=== PATIENT | female | born 1990 | race Caucasian/White ===

== ENCOUNTER 2019-12-07 10:16 | Outpatient (CLI) | payer OTHER, SELFPAY ==
[2019-12-07 10:43] VITALS: BP 144/88; PULSE 107
[2019-12-07 10:45] VITALS: BP 126/91; PULSE 109
[2019-12-07 10:49] LABS: Basophils Absolute Auto 0.1 K/mm3 (0.0-0.1); Basophils Percent Auto 0.4 % (0.2-1.2); Eosinophils Absolute Auto 0.1 K/mm3 (0-0.3); Eosinophils Percent Auto 1.2 % (0-4.4); Hematocrit 35.2 % (37.0-47.0); Immature Granulocyte Percent A 1.7 % (0-0.5); Lymphocytes Percent Auto 15.1 % (18.3-44.2); Mean Corpuscular HGB Conc 34.1 g/dl (32-36); Mean Corpuscular Hemoglobin 30.4 pg (26-34); Mean Corpuscular Volume 89.1 fl (80-100); Monocytes Absolute Auto 0.9 K/mm3 (0.1-0.6); Monocytes Percent Auto 7.4 % (2.6-8.5); Neutrophils Absolute Auto 8.9 K/mm3 (1.3-6.7); Neutrophils Percent Auto 74.2 % (45.5-73.1); Platelet Count Result 201 k/mm3 (150-375); Red Blood Count 3.95 M/mm3 (4.2-5.4); Red Cell Distribution Width 14.7 % (11.5-14.5)
[2019-12-07 11:00] VITALS: BP 128/80; PULSE 114
[2019-12-07 11:02] LABS: Alanine Aminotransferase 6 U/L (4-35); Albumin Level 3.4 g/dL (3.5-5.1); Alkaline Phosphatase 166 U/L (38-126); Aspartate Amino Transferase 19 U/L (14-36); Bilirubin,Total 0.1 mg/dL (0.2-1.3); Blood Urea Nitrogen 4 mg/dL (7-17); Carbon Dioxide 21 mmol/L (22-30); Chloride 106 mmol/L (98-107); Estimated Glomerular Filt Rate > 60; Glucose 71 mg/dL (65-105); Potassium 3.8 mmol/L (3.4-5.0); Sodium 132 mmol/L (137-145); Uric Acid 4.5 mg/dL (2.5-7.5)
[2019-12-07 11:03] LABS: Creatinine Urine 21.1 mg/dL; Total Protein Urine Random 13 mg/dL
[2019-12-07 11:15] VITALS: BP 121/86; PULSE 100
[2019-12-07 11:20] VITALS: PULSE 103
--- NOTE | 2019-12-07 12:23 | PC.NURSE ---
Addendum entered by Na Osorio RN 12/07/19 12:25: Actual time called was 1115. Original Note: Called Vipul Araujo CNM with labs, BPs and tracing. December D/C home with 24hr urine and follow up this week in office.
== END 2019-12-07 11:25 | disposition home or self-care (01) ==
LOC: ANHOBOP 10:20 → ANHOBPP 10:21
PROVIDERS: Advanced Practice Midwife; PCP Internal Medicine; Visit Provider Obstetrics & Gynecology
DX: O13.9 Gestational [pregnancy-induced] hypertension without significant proteinuria, unspecified trimester (principal)
CPT/HCPCS: 36415; 59025; 80053; 82570; 84156; 84550; 85025; 99199

== ENCOUNTER 2019-12-08 12:45 | Outpatient (CLI) | payer OTHER, SELFPAY ==
[2019-12-08 14:54] LABS: Collection Time Urine 24 HOURS
[2019-12-08 15:02] LABS: Patient Weight 300 Lbs; Specific Gravity Ur 1.011; Total Volume 24 Hour Urine 3100 ml
[2019-12-08 15:12] LABS: Creatinine Clearance Urine 157.7 ml/min (75-125); Creatinine Urine 62.8 mg/dL; Total Protein Urine 24 Hr 434 MG/DAY (28-141); Total Protein Urine Random 14 mg/dL
== END 2019-12-08 12:46 | disposition home or self-care (01) ==
LOC: ANHOBOP 12:55
PROVIDERS: PCP Internal Medicine; Visit Provider Advanced Practice Midwife
DX: O13.9 Gestational [pregnancy-induced] hypertension without significant proteinuria, unspecified trimester (principal)
CPT/HCPCS: 81050; 82575; 84156

== ENCOUNTER 2019-12-09 16:43 | Inpatient (IN) | payer OTHER, SELFPAY ==
[2019-12-09] VITALS (11 sets, daily range): BP systolic 126–140; BP diastolic 66–82; PULSE 95–116; TEMP 36.9; BMI 41.5
--- NOTE | 2019-12-09 16:43 | LDADM ---
This patient, Cristine Wyman, was admitted to Labor/Delivery/Recovery 108 on 12/09/19 at 16:43. Plans for labor, pain management and were discussed with patient. Patient/family oriented to hospital policies and general routines including ID bracelet, bed and alarms, visiting hours, pain management, procedures, bathroom and other care routines, personal items, smoking policy, room service/diet and guest tray routines, security routines, and visiting hours. Patient/Family are encouraged to report perceived risks to care and to ask questions if they do not understand what they are told or what they should do. See OBIX for further documentation.
[2019-12-09 17:48] LABS: Basophils Percent Auto 0.2 % (0.2-1.2); Eosinophils Absolute Auto 0.1 K/mm3 (0-0.3); Eosinophils Percent Auto 0.7 % (0-4.4); Hematocrit 36.4 % (37.0-47.0); Hemoglobin 12.3 g/dL (12.0-15.0); Immature Granulocyte Absolute 0.12 K/mm3 (0.00-0.031); Immature Granulocyte Percent A 0.9 % (0-0.5); Lymphocytes Absolute Auto 1.69 K/mm3 (0.9-3.2); Lymphocytes Percent Auto 12.2 % (18.3-44.2); Mean Corpuscular HGB Conc 33.8 g/dl (32-36); Mean Corpuscular Hemoglobin 30.1 pg (26-34); Mean Corpuscular Volume 89.2 fl (80-100); Mean Platelet Volume 12.3 fl (7.4-10.4); Monocytes Percent Auto 6.9 % (2.6-8.5); Neutrophils Percent Auto 79.1 % (45.5-73.1); Platelet Count Result 252 k/mm3 (150-375); Red Blood Count 4.08 M/mm3 (4.2-5.4); Red Cell Distribution Width 14.6 % (11.5-14.5); White Blood Count 13.9 K/mm3 (4.5-10.0)
[2019-12-09 19:07] LABS: Alanine Aminotransferase 6 U/L (4-35); Albumin Level 3.6 g/dL (3.5-5.1); Alkaline Phosphatase 185 U/L (38-126); Aspartate Amino Transferase 20 U/L (14-36); Bilirubin,Total 0.2 mg/dL (0.2-1.3); Blood Urea Nitrogen 5 mg/dL (7-17); Calcium 8.7 mg/dL (8.4-10.2); Carbon Dioxide 21 mmol/L (22-30); Chloride 106 mmol/L (98-107); Estimated Glomerular Filt Rate > 60; Glucose 77 mg/dL (65-105); Potassium 3.7 mmol/L (3.4-5.0); Sodium 136 mmol/L (137-145); Uric Acid 5.1 mg/dL (2.5-7.5)
--- NOTE | 2019-12-09 21:37 | WPDANESEPP ---
Anes - Eval Pre Procedure Procedure: labor epidural Date/Time: 12/09/19 21:37 Surgeon: dea Pre Op Diagnosis: Induction of Labor Patient Data Age: 29 Gender: F Height: 1.8 m Weight: 135 kg Last Vital Signs Temp 36.9 C 12/09/19 20:20 Pulse 106 H 12/09/19 21:29 BP 132/80 12/09/19 21:29 Allergies Allergy/AdvReac Type Severity Reaction Status Date / Time No Known Allergies Allergy Verified 11/28/19 12:33 Home Medications Medication Instructions Recorded Confirmed Type PNV cmb#95-ferrous fumarate-FA 1 tablet PO DAILY 11/28/19 11/28/19 History [] aspirin [Aspirin Low Dose] 81 mg PO DAILY 11/28/19 11/28/19 History Laboratory Tests 12/09/19 12/09/19 12/09/19 17:37 17:37 17:37 WBC 13.9 K/mm3 H K/mm3 (4.5-10.0) RBC 4.08 M/mm3 L M/mm3 (4.2-5.4) Hgb 12.3 g/dL g/dL (12.0-15.0) Hct 36.4 % L % (37.0-47.0) MCV 89.2 fl fl (80-100) MCH 30.1 pg pg (26-34) MCHC 33.8 g/dl g/dl (32-36) RDW 14.6 % H % (11.5-14.5) Plt Count 252 k/mm3 k/mm3 (150-375) MPV 12.3 fl H fl (7.4-10.4) Immature Gran % (Auto) 0.9 % H % (0-0.5) Neut % (Auto) 79.1 % H % (45.5-73.1) Lymph % (Auto) 12.2 % L % (18.3-44.2) Band[place] % (Auto) 6.9 % % (2.6-8.5) Eos % (Auto) 0.7 % % (0-4.4) Baso % (Auto) 0.2 % % (0.2-1.2) Lymph # (Auto) 1.69 K/mm3 K/mm3 (0.9-3.2) [place] # (Auto) 1.0 K/mm3 H K/mm3 (0.1-0.6) Eos # (Auto) 0.1 K/mm3 K/mm3 (0-0.3) Baso # (Auto) 0.0 K/mm3 K/mm3 (0.0-0.1) Abs Immat Gran (auto) 0.12 K/mm3 H K/mm3 (0.00-0.031) Absolute Neuts (auto) 11.0 K/mm3 H K/mm3 (1.3-6.7) Absolute Nucleated RBC 0.0 K/mm3 K/mm3 (0.0-0.012) Nucleated RBC % 0.0 % % (0.0-0.2) Sodium Potassium Chloride Carbon Dioxide BUN Creatinine Estim Creat Clear Calc Estimated GFR Glucose Uric Acid Calcium Total Bilirubin AST ALT Alkaline Phosphatase Total Protein Albumin RPR Pending Blood Type O Positive Antibody Screen Negative 12/09/19 18:50 WBC RBC Hgb Hct MCV MCH MCHC RDW Plt Count MPV Immature Gran % (Auto) Neut % (Auto) Lymph % (Auto) [place] % (Auto) Eos % (Auto) Baso % (Auto) Lymph # (Auto) [place] # (Auto) Eos # (Auto) Baso # (Auto) Abs Immat Gran (auto) Absolute Neuts (auto) Absolute Nucleated RBC Nucleated RBC % Sodium 136 mmol/L L mmol/L (137-145) Potassium 3.7 mmol/L mmol/L (3.4-5.0) Chloride 106 mmol/L mmol/L (98-107) Carbon Dioxide 21 mmol/L L mmol/L (22-30) BUN 5 mg/dL L mg/dL (7-17) Creatinine 0.60 mg/dL L mg/dL (0.7-1.0) Estim Creat Clear Calc Not Reportable Estimated GFR > 60 (59 - ) Glucose 77 mg/dL mg/dL (65-105) Uric Acid 5.1 mg/dL mg/dL (2.5-7.5) Calcium 8.7 mg/dL mg/dL (8.4-10.2) Total Bilirubin 0.2 mg/dL mg/dL (0.2-1.3) AST 20 U/L U/L (14-36) ALT 6 U/L U/L (4-35) Alkaline Phosphatase 185 U/L H U/L (38-126) Total Protein 7.0 g/dL g/dL (6.3-8.2) Albumin 3.6 g/dL g/dL (3.5-5.1) RPR Blood Type Antibody Screen Patient hx anesthesia problems: none Family hx anesthesia problems: none [facility] Family History Family History (Updated 11/28/19 @ 12:36 by Earle Atkins RN) Grandparent Hypertension Asthma Bladder cancer Social History Social History Smoking status: Never smoker Substance use: never Spiritual care concerns: No
[2019-12-10] VITALS (127 sets, daily range): BP systolic 55–174; BP diastolic 28–131; PULSE 87–127; RESP 18; TEMP 37.2–37.7; O2SAT 86–100
--- NOTE | 2019-12-10 04:28 | WPDOBADMIT ---
Obstetrics - Admit Note Admission Note: record reviewed. No pertinent additions to the history and/or any subsequent changes in the physical findings that are not consistent with the expected course of the were found. MIL mild preeclampsia plan opitocin, anticipate vaginal delivery Additions to the history and/or subsequent changes in the physical findings follow. None.
[2019-12-10] MEDS: LACTATED RINGERS 1,000 ML 125 ML IV CONT ×3 (06:30→12:43)
[2019-12-10 07:08] LABS: Rapid Plasma Reagin Non-Reactive (NonReactive)
--- NOTE | 2019-12-10 07:54 | WPDOBADMIT ---
Obstetrics - Admit Note Admission Note: 29y/o @ 37w6 days here for inducton of labor due to mild pre-eclampsia. Pt has had elevated blood pressures and now a elevated 24 hour urine. Pt denies h/a, v/d, or e/p. Contractions irregular FHR category 1 Cervix 2 internal/ 3 external/50/-3 and well applied to cervix AROM moderate amount of clear odorless fluid IUPC placed EFW 8lbs Epidural as desired Anticipate . record reviewed. No pertinent additions to the history and/or any subsequent changes in the physical findings that are not consistent with the expected course of the were found. Additions to the history and/or subsequent changes in the physical findings follow. None.
[2019-12-10] MEDS: PHENYLEPHRINE 1,000 MCG/10 ML SYRINGE 100 MCG IV PUSH ×4 (10:19→10:44)
--- NOTE | 2019-12-10 15:47 | PM.OBPRVD ---
OB - Delivery Note Procedure Delivery date: 12/10/19 events: Induced HTN Intrapartal events: None and Mild Preeclampsia Induction method: per pitocin protocol Delivery monitor: external FHT, external uterine and internal uterine Route of delivery: Episiotomy description: None Laceration description: None Estimated blood loss (mL): 68 Anesthesia type: Epidural [place] Baby Date of : 12/10/19 Time of : 15:27 Weeks of gestation at delivery: 37 gender: Female Weight (pounds): 8 Weight (ounces): 2 presentation: vertex Placenta delivery description: Spontaneous cord vessel description: Nuchal Cord, Loose and Reduced score one minute: 8 score five minutes: 9
[2019-12-10] MEDS: OXYTOCIN 30 UNITS/NS 500 ML 30 UNITS/500 ML BAG 125 UNITS IV CONT (16:16)
--- NOTE | 2019-12-10 20:03 | PC.NURSE ---
Patient transferred to post room # 288 via . Support person present. Oriented to unit, room, information board, rooming in, admission packet and security measures. Patient verbalizes understanding.
[2019-12-11 06:01] LABS: Hematocrit 29.5 % (37.0-47.0); Hemoglobin 9.7 g/dL (12.0-15.0)
--- NOTE | 2019-12-11 07:31 | PM.OBPNVD ---
OB - PN: Subj Subjective Date/time seen: 12/11/19 07:31 Patient comments: no complaints, pain well controlled, incisional pain, tolerating diet and flatus present OB - PN: Obj Data Labs CBC & Chem 7: 12/11/19 04:32 12/09/19 18:50 Labs: Laboratory Results - last 24 hr 12/11/19 04:32 Hgb 9.7 L Hct 29.5 L OB - PN A/P Plan day: 1 Plan: routine care Comments: No problems, routine care Time Spent With Patient Time: Total time spent is greater than 50% in coordination of care (as documented) at patient's floor/unit and/or counseling patient: Exam Const: General: comfortable, no acute distress and alert Resp: Effort & Inspection: normal respiratory effort Auscultation: no crackles, no rales and no rhonchi Cardio: Rate: regular rate Heart sounds: no click, no murmurs and no rubs GI: Inspection: non-distended GI Palp: No Tenderness to palpation present (GI) Auscultation: normal bowel sounds Other: Incision - CDI Extrem: General: normal to inspection, no pedal edema and no calf tenderness
[2019-12-11 08:30] VITALS: BP 140/93; PULSE 97; RESP 18; TEMP 37.3; O2SAT 99
[2019-12-11] MEDS: MULTIVIT/MIN/PREN/FOL AC/IRON TABLET 1 TAB PO (08:39)
[2019-12-11] MEDS: POLYSACCHARIDE IRON COMPLEX 150 MG CAPSULE PO ×2 (08:43→16:29)
[2019-12-11] MEDS: DOCUSATE SODIUM 100 MG CAPSULE PO ×2 (08:43→16:29)
--- NOTE | 2019-12-11 11:29 | WPDANLDPN2 ---
Anes-Prog Note L&D Date/Time: 12/11/19 11:29 Comfortable throughout: delivery Neuraxial method: epidural Epidural/Spinal procedure site: clean & non-tender Neuro status: Neuro function grossly intact. Cardiovascular status: normal Respiratory status: normal Airway patency: baseline Mental status: baseline Post-Op hydration status: normal Vital Signs: Last Vital Signs Temp 37.3 C 12/11/19 08:30 Pulse 97 12/11/19 08:30 Resp 18 12/11/19 08:30 BP 140/93 H 12/11/19 08:30 Pulse Ox 99 12/11/19 08:30 Post-procedural complaints: none Patient feedback: Patient satisfied with anesthetic care.
[2019-12-11 17:20] VITALS: BP 147/95; PULSE 94; O2SAT 99
[2019-12-11] MEDS: IBUPROFEN 600 MG TABLET PO (17:44)
[2019-12-11 20:00] VITALS: BP 148/96; PULSE 96; RESP 20; TEMP 37.2; O2SAT 100
[2019-12-11 20:30] VITALS: BP 117/68
[2019-12-12 08:15] VITALS: BP 130/73; PULSE 92; RESP 18; TEMP 36.9
[2019-12-12] MEDS: DOCUSATE SODIUM 100 MG CAPSULE PO ×2 (09:20→17:59)
[2019-12-12] MEDS: POLYSACCHARIDE IRON COMPLEX 150 MG CAPSULE PO ×2 (09:20→17:58)
[2019-12-12] MEDS: MULTIVIT/MIN/PREN/FOL AC/IRON TABLET 1 TAB PO (09:25)
--- NOTE | 2019-12-12 11:00 | PM.OBPNVD ---
OB - PN: Subj Subjective Date/time seen: 12/12/19 11:00 Patient comments: no complaints, pain well controlled, incisional pain, tolerating diet and flatus present OB - PN: Obj Data Labs CBC & Chem 7: 12/11/19 04:32 12/09/19 18:50 OB - PN A/P Plan day: 2 Plan: routine care Comments: POD#2 LTCS - comtinue observation for HTN, Time Spent With Patient Time: Total time spent is greater than 50% in coordination of care (as documented) at patient's floor/unit and/or counseling patient: Exam Const: General: comfortable, no acute distress and alert Resp: Effort & Inspection: normal respiratory effort Auscultation: no crackles, no rales and no rhonchi Cardio: Rate: regular rate Heart sounds: no click, no murmurs and no rubs GI: Inspection: non-distended GI Palp: No Tenderness to palpation present (GI) Auscultation: normal bowel sounds Other: Incision - CDI Extrem: General: normal to inspection, no pedal edema and no calf tenderness
[2019-12-12 20:20] VITALS: BP 129/73; PULSE 88; RESP 18; TEMP 37.3; O2SAT 100
[2019-12-13 08:30] VITALS: BP 122/80; PULSE 89; RESP 16; TEMP 36.9; O2SAT 98
[2019-12-13] MEDS: DOCUSATE SODIUM 100 MG CAPSULE PO (09:44)
[2019-12-13] MEDS: MULTIVIT/MIN/PREN/FOL AC/IRON TABLET 1 TAB PO (09:44)
[2019-12-13] MEDS: POLYSACCHARIDE IRON COMPLEX 150 MG CAPSULE PO (09:44)
--- NOTE | 2019-12-13 11:34 | PM.OBPNVD ---
OB - PN: Subj Subjective Date/time seen: 12/13/19 11:34 Patient comments: no complaints, pain well controlled, incisional pain, tolerating diet and flatus present OB - PN: Obj Data Labs CBC & Chem 7: 12/11/19 04:32 12/09/19 18:50 OB - PN A/P Plan day: 3 Plan: routine care Comments: POD#3 LTCS - no problems, ready to d/c, BP's are stable Time Spent With Patient Time: Total time spent is greater than 50% in coordination of care (as documented) at patient's floor/unit and/or counseling patient: Exam Const: General: comfortable, no acute distress and alert Resp: Effort & Inspection: normal respiratory effort Auscultation: no crackles, no rales and no rhonchi Cardio: Rate: regular rate Heart sounds: no click, no murmurs and no rubs GI: Inspection: non-distended GI Palp: No Tenderness to palpation present (GI) Auscultation: normal bowel sounds Other: Incision - CDI Extrem: General: normal to inspection, no pedal edema and no calf tenderness
--- NOTE | 2019-12-13 11:35 | PM.OBDSVD ---
DS: Diagnosis Discharge Diagnosis (1) Term delivered: Code(s): O80 - Encounter for full-term uncomplicated delivery Status: Acute OB - DS: Summary OB Procedures : PIH Mgmt OB Procedures Intrapartum: Spontaneous Vag Delivery OB Procedures: : None Peripartum Data Infant Delivery Method: Natural Vaginal complications: none Status at Discharge Functional status at discharge: independent ambulation Time Spent with Patient Time attestation: Total time spent providing and/or coordinating discharge services: DS: Data Data Completed and Pending Pending studies at discharge: Pending at discharge 12/10/19 15:40 Surgical [PTH] Routine Discharge Plan Discharge Discharging Clinician: Daiana Guerra Patient Disposition: Home, Self-Care Activity: pelvic rest Diet: regular Patient Instructions: Antibiotic Form Stand Alone Forms: General Discharge Information Follow-up/Referrals: Daiana Guerra MD [Physician] - Discharge Medications: Continued PNV cmb#95-ferrous fumarate-FA [] 28 mg iron- 800 mcg Tablet 1 tablet PO DAILY RF: 0 Discontinued aspirin [Aspirin Low Dose] 81 mg Tablet,Delayed Release (Dr/Ec) 81 mg PO DAILY RF: 0 Date of admission: 12/09/19 16:43 Primary Care Provider: BrysonSantino Admitting Provider: Daiana Guerra Attending physician on admission: Daiana Guerra
[2019-12-15 09:10] VITALS: BP 135/82; PULSE 98; RESP 20; TEMP 36.6; O2SAT 99
== END 2019-12-13 12:35 | disposition home or self-care (01) | DRG 807 ==
LOC: ANHLDR 16:49 → ANHOB2 12-10 19:48
PROVIDERS: Advanced Practice Midwife; Admitting Provider Obstetrics & Gynecology; PCP Internal Medicine; Visit Provider Obstetrics & Gynecology
DX: O14.04 Mild to moderate pre-eclampsia, complicating childbirth (principal); Z37.0 Single live birth; Z3A.37 37 weeks gestation of pregnancy; O69.2XX0 Labor and delivery complicated by other cord entanglement, with compression, not applicable or unspecified
CPT/HCPCS: 36415; 80053; 84550; 85014; 85018; 85025; 86592; 86850; 86900; 86901; 88307; A9270; J2370; J2590; J2795; J7120

== ENCOUNTER → 2021-10-07 00:03 | Outpatient (CLI) | payer OTHER, SELFPAY ==
[2021-10-07 12:27] LABS: SARS-CoV-2 RNA PCR Negative
== END ==
PROVIDERS: PCP Internal Medicine; Visit Provider Obstetrics & Gynecology
DX: Z01.812 Encounter for preprocedural laboratory examination (principal); Z20.822 Contact with and (suspected) exposure to COVID-19
CPT/HCPCS: C9803; U0003; U0005

== ENCOUNTER 2021-10-11 00:06 | Day surgery (SDC) | payer OTHER, SELFPAY ==
[2021-10-04 13:58] VITALS: BMI 39.2
--- NOTE | 2021-10-04 14:06 | PC.NURSE ---
Report to the Outpatient Waiting Room, entrance under the green pavilion located off [facility], at time 0600 on date 10/11/21. OR Time: 0730. - You and your visitor will be asked a series of questions to screen for COVID 19 for your protection. - A mask is required within the hospital. One visitor will be allowed to accompany the patient into the hospital. Patients visitor will be instructed to remain with patient at all times or leave the building. We will allow the visitor to come back to the postoperative area when patient is ready. Preoperative COVID Testing Requirements: No COVID Test needed if: (proof is required; if not received patient will have Rapid Test prior to entry) - Patient has received COVID Vaccine at least 14 days prior to procedure date or - Patient has positive COVID test result within last 90 days of surgery date. COVID Test needed if above criteria is not met Patients may have clear liquids (water, carbonated beverages, clear teas, apple juice) until 3 hours prior to surgery with a maximum of 20 ounces. - No food from midnight until time of surgery Take the following medications with a SIP of water the morning of surgery: CONTROL PILL, INHALER (IF NEEDED) Medications to discontinue per physician: N/A Date to take last dose: N/A Please no make-up, nail bulgarian, hairspray, perfume, deodorant, or body powder the day of surgery. No jewelry (including any body piercings) or valuables the day of surgery, leave them at home. Please take a shower or bath the night before, or the morning of, surgery with an antibacterial soap. Wear comfortable, loose fitting clothing. - Jewelry must be removed prior to entering the operating room. Rings and piercings that are not removed may be cut off. - The hospital will not accept responsibility for valuables. - Please leave all valuables, including medications, at home the day of surgery. If you are going home after surgery, a licensed route sales delivery drivers supervisor must drive you home. - NO public transportation without another adult. - We recommend that an adult stay with you for 24 hours following discharge. - We also recommend that you do not drive, make important decision, drink alcoholic beverages, or take any drugs that were not prescribed by your health care provider for at least 24 hours after your discharge time. Follow any additional instructions given to you from your surgeon. Telephone instructions given to MAICO SANCHEZ and asked if any additional questions and then verbalized understanding. Patient advised to call surgeon office or pre surgery nurse liaison [phone] if any additional questions.
--- NOTE | 2021-10-10 13:25 | P.PNAN_ITS ---
Anes - Initial Pre Proc Eval Procedure: Operation Date: 10/11/21 07:30 Proposed Procedures p Laparoscopic Bilateral Salpingectomy - Daiana Guerra MD Date/Time: 10/10/21 13:25 Surgeon: Daiana Guerra MD Pre Op Diagnosis: Menorrhagia Vol Sterilization Patient Data Age: 30 Gender: F Height: 1.78 m Weight: 123.83 kg Allergies Allergy/AdvReac Type Severity Reaction Status Date / Time No Known Allergies Allergy Verified 10/11/21 06:24 Home Medications Medication Instructions Recorded Confirmed Type albuterol sulfate 1 inh INHALATION Q6H PRN 10/04/21 10/11/21 History drospirenone-ethinyl estradiol 1 tablet PO DAILY 10/04/21 10/11/21 History [LESLI (28)] ergocalciferol (vitamin D2) 1,250 mcg PO WEEKLY 10/04/21 10/11/21 History Patient hx anesthesia problems: none Family hx anesthesia problems: none Results Review: All pre-operative results and documents have been reviewed as part of the pre-operative evaluation. [facility] Past Medical History Medical History (Updated 10/10/21 @ 13:27 by Sony Shepard MD) Abnormal uterine bleeding Anxiety Asthma HTN (hypertension) Hyperlipidemia Obesity Family History Family History (Updated 11/28/19 @ 12:36 by Earle Atkins RN) Grandparent Hypertension Asthma Bladder cancer Social History Social History Smoking status: Never smoker Alcohol intake: current Alcohol use details: EVERY COUPLE MONTHS Substance use: never Substance use type: does not use Living arrangements: with family Spiritual care concerns: No Anes - Eval Final PreProcedure Day of Procedure 10/10/21 13:25 Patient weight: obese Heart: regular rate and rhythm Lungs: clear to auscultation and normal air movement Airway: Mallampati scale class II Neurological: alert and oriented Last oral intake: >/= 8 hours ASA classification: III Emergent: no Anesthetic plan: proceed Anesthesia type and monitoring: general LMA Results Review: All pre-operative results and documents have been reviewed as part of the pre-operative evaluation. Informed Consent: The patient's anesthetic plan and its attendant risks and benefits were discussed with the patient/family/POA. Questions were solicited and answers provided to the satisfaction of the patient/family/POA.
[2021-10-11] VITALS (7 sets, daily range): BP systolic 114–147; BP diastolic 56–88; PULSE 67–87; RESP 16–20; TEMP 36.3–36.9; O2SAT 97–100
[2021-10-11] MEDS: ACETAMINOPHEN 500 MG TABLET 1000 MG PO (06:27)
[2021-10-11] MEDS: LACTATED RINGERS 1,000 ML 30 ML IV CONT ×2 (06:41→08:22)
[2021-10-11] MEDS: KETOROLAC 15 MG/ML VIAL (*BKC) IV PUSH (06:42)
--- NOTE | 2021-10-11 07:15 | WPDHPUPDATE1 ---
History and Physical Update Update Date/Time: 10/11/21 07:15 History and Physical has been reviewed, including an updated exam of the patient. There are NO changes in the patient's condition. Risks, benefits, and alternatives have been discussed and questions answered. Patient agrees to proceed with procedure.
--- NOTE | 2021-10-11 08:09 | W.PM.PROC2 ---
Procedure Note - Detailed Date of Procedure 10/11/21 Pre-op Diagnosis Menorrhagia Vol Sterilization Post-op Diagnosis Same Procedure Performed Laparoscopic bilateral salpingectomy Surgeon Daiana Guerra MD Anesthesia General Indications Unwanted fertility Findings Normal pelvic anatomy Description of Procedure The patient was taken the operating room. She was prepped and draped in the dorsal lithotomy position after induction of general anesthesia. A 5 mm skin incision was made in the left upper quadrant of the abdominal skin. A 5 mm trocar was inserted the intra-abdominal cavity under direct visualization of the scope. Pneumoperitoneum was achieved. A 5 mm trocar was inserted in the left lower quadrant identical fashion. A 5 mm infraumbilical trocar was inserted in identical fashion as well. The bilateral fallopian tubes were removed. This was done by using a LigaSure cautery. The mesosalpinx adjacent to the tube was cauterized transected with LigaSure. This was initiated in the area the ovary and in a stepwise fashion moved medially to the area of the cornu of the uterus. Once there the fallopian tube was cauterized and transected. This was done in identical fashion on each side. The fallopian tubes were taken out through the left lower quadrant trocar site. The pneumoperitoneum was reduced. The trocars removed. The skin was closed with subcuticular 4 Monocryl and covered with Dermabond. She was taken to cover stable condition. Sponge lap and needle counts were correct x2. Estimated Blood Loss 5 Drains No Packing No Pathology Yes Complications No immediate complications Condition Stable Disposition PACU
[2021-10-11] MEDS: ONDANSETRON INJ 4 MG/2 ML VIAL IV PUSH (08:43)
== END 2021-10-11 09:35 | disposition home or self-care (01) ==
PROVIDERS: PCP Internal Medicine; Visit Provider Obstetrics & Gynecology
PROC: (CPT 58671; principal; 2021-10-11 07:30)
DX: Z30.2 Encounter for sterilization (principal); N92.0 Excessive and frequent menstruation with regular cycle; J45.909 Unspecified asthma, uncomplicated; Z79.51 Long term (current) use of inhaled steroids; E66.9 Obesity, unspecified; Z68.38 Body mass index [BMI] 38.0-38.9, adult
CPT/HCPCS: 58661; 88302; A9270; C9803; J0330; J1100; J1885; J2250; J2405; J2704; J3010; J7120; U0003; U0005

== ENCOUNTER → 2022-08-21 08:43 | Outpatient (CLI) | payer OTHER, SELFPAY ==
--- NOTE | ~2022-08-21 | US_ITS ---
EXAMINATION: US breast LT limited HISTORY: Palpable lump of the upper inner left breast TECHNIQUE: Targeted left breast ultrasound is performed in the area of clinical concern. FINDINGS: There is no evidence of focal abnormal cystic or solid mass in the vicinity of the reported palpable abnormality of concern. IMPRESSION: No specific sonographic correlate is identified for the reported palpable abnormality of concern. Fur ther evaluation at this time should be based on clinical assessment. Continued follow-up physical exa mination is recommended. BI-RADS Category 1: Negative Reviewed, dictated and finalized at location A. [employer] IMPRESSION: No specific sonographic correlate is identified for the reported palpable abnor mality of concern. Further evaluation at this time should be based on clinical assessment. Continued follow-up physical examination is recommended. BI-RADS Category 1: Negative
== END ==
PROVIDERS: PCP Internal Medicine; Visit Provider Nurse Practitioner
DX: N63.20 Unspecified lump in the left breast, unspecified quadrant (principal)
CPT/HCPCS: 76642

== ENCOUNTER 2023-03-14 20:06 | Emergency (ER) | payer OTHER, SELFPAY ==
--- NOTE | ~2023-03-14 | CT_ITS ---
EXAMINATION: CT brain wo con DATE: 03/14/2023 21:26 INDICATION: left facial numbness . TECHNIQUE: Computed tomography (CT) of the head was performed without intravenous contrast. The mA wa s adjusted according to patient size. Iterative reconstruction technique was employed. The dose-lengt h product was 605.33 mGy-cm. COMPARISON: None. FINDINGS: No acute intracranial hemorrhage or extra-axial fluid collection. No hydrocephalus, mass, or herniation. No acute ischemic infarct. Unremarkable dural venous sinus attenuation. No acute osseous abnormality. The aerated spaces are clear. IMPRESSION: No acute intracranial process. Reviewed, dictated and finalized at location K.
[2023-03-14 20:19] VITALS: BP 134/88; PULSE 68; RESP 16; TEMP 36.5; O2SAT 100
--- NOTE | 2023-03-14 20:23 | ECG_ITS ---
Measurements Intervals [place] Rate: 78 P: 24 AR: 188 QRS: 1 QRSD: 92 T: 22 QT: 362 QTc: 413 Interpretive Statements SINUS RHYTHM LOW QRS VOLTAGE IN PRECORDIAL LEADS [QRS DEFLECTION < 1.0 mV IN CHEST LEADS] POOR R EWAVE PROGRESSION NO PREVIOUS ECG AVAILABLE FOR COMPARISON Electronically Signed On 03-15-2023 8:54:27 CDT by Maninder Keith M.D.
[2023-03-14 20:40] LABS: Basophils Absolute Auto 0.1 K/mm3 (0.0-0.1); Basophils Percent Auto 0.6 % (0.2-1.2); Eosinophils Absolute Auto 0.2 K/mm3 (0-0.3); Hematocrit 37.7 % (37.0-47.0); Hemoglobin 12.8 g/dL (12.0-15.0); Immature Granulocyte Absolute 0.03 K/mm3 (0.00-0.031); Immature Granulocyte Percent A 0.4 % (0-0.5); Lymphocytes Absolute Auto 2.12 K/mm3 (0.9-3.2); Lymphocytes Percent Auto 26.6 % (18.3-44.2); Mean Corpuscular Hemoglobin 29.8 pg (26-34); Mean Corpuscular Volume 87.9 fl (80-100); Mean Platelet Volume 10.5 fl (7.4-10.4); Monocytes Absolute Auto 0.6 K/mm3 (0.1-0.6); Monocytes Percent Auto 7.3 % (2.6-8.5); Neutrophils Percent Auto 63.1 % (45.5-73.1); Platelet Count Result 258 k/mm3 (150-375); Red Blood Count 4.29 M/mm3 (4.2-5.4); Red Cell Distribution Width 12.7 % (11.5-14.5)
[2023-03-14 20:49] LABS: Alanine Aminotransferase 9 U/L (6-35); Albumin Level 4.5 g/dL (3.5-5.1); Alkaline Phosphatase 73 U/L (38-126); Anion Gap 4 mmol/L (8-16); Aspartate Amino Transferase 22 U/L (14-36); Bilirubin,Total 0.3 mg/dL (0.2-1.3); Blood Urea Nitrogen 14 mg/dL (7-17); Calcium 9.1 mg/dL (8.4-10.2); Carbon Dioxide 28 mmol/L (22-30); Chloride 102 mmol/L (98-107); Estimated CRCL calculation 115 ml/min; Estimated Glomerular Filt Rate > 60; Glucose 100 mg/dL (65-110); Potassium 4.1 mmol/L (3.4-5.0); Sodium 134 mmol/L (137-145)
[2023-03-14 20:51] LABS: Partial Thromboplastin Time 33.1 SECONDS (22.3-36.8); Prothrombin Time 13.4 Seconds (11.1-14.7)
[2023-03-14 20:57] VITALS: PULSE 95
--- NOTE | 2023-03-14 21:02 | ED.NEUROSD ---
HPI - Neuro Symptoms/Deficit General Chief Complaint: Neuro Symptoms/Deficit Stated Complaint: facial numbness since 1515 Time Seen by Provider: 03/14/23 20:53 History of Present Illness HPI Narrative: Patient is a 32-year-old female with a history of asthma presenting with facial numbness. Patient states that approximately 6 hours ago she noticed that the left side of her face felt numb. States that she also had some numbness around her right eye. States the numbness around her eye has resolved and the numbness on the left side of her face is improved but she states it still feels a bit weird. States that her face may have been droopy earlier but this has resolved. She denies any numbness elsewhere or any weakness. No vision or speech changes. No vertigo or ataxia. States that she has been under a lot of stress lately and her left eye has been twitching intermittently for the last several weeks. She denies further complaints or concerns. Related Data Home Medications Medication Instructions Recorded Confirmed albuterol sulfate 90 mcg/actuation 1 inh inhalation Q6H PRN 10/04/21 10/11/21 aerosol inhaler Bronchospasm drospirenone 3 mg-ethinyl 1 tablet PO DAILY 10/04/21 10/11/21 estradiol 0.02 mg tablet (LESLI (28)) ergocalciferol (vitamin D2) 1,250 1,250 mcg PO WEEKLY 10/04/21 10/11/21 mcg (50,000 unit) capsule Allergies Allergy/AdvReac Type Severity Reaction Status Date / Time No Known Allergies Allergy Verified 03/14/23 20:59 Review of Systems Review of Systems: All systems reviewed & are unremarkable except as noted in HPI and below PMFSH Past Medical History Medical History Abnormal uterine bleeding Anxiety Asthma HTN (hypertension) Hyperlipidemia Obesity Family History Family History Grandparent Hypertension Asthma Bladder cancer Social History Social History Smoking status: Never smoker Alcohol intake: current Alcohol use details: EVERY COUPLE MONTHS Substance use: never Substance use type: does not use Living arrangements: with family Gender identity (if verbalized by the patient): Female Sexual Orientation (if Verbalized by the Patient): Straight or Heterosexual Spiritual care concerns: No Exam Narrative: GENERAL: Well-appearing, well-nourished, and in no acute distress. Pleasant and cooperative HEAD: Normocephalic, atraumatic. EYES: PERRLA and EOMI. ENT: Nares clear, no rhinorrhea or epistaxis. Mucous membranes moist. NECK: Supple. CHEST: No respiratory distress. HEART: Regular rate and rhythm. ABDOMEN: Soft, nontender, nondistended EXTREMITIES: Normal range of motion. No edema. SKIN: Warm, dry, no rash. NEURO: No focal deficits. Alert and oriented x3. 5 out of 5 strength in all extremities, no sensory deficits even in the face, states that tactile sensation feels equal bilaterally in upper, mid, and lower face; there is no facial droop, her coordination is intact, no pronator drift PSYCH: Normal mood and affect. Course Vital Signs Vital signs: Vital Signs Temperature 97.7 F 03/14/23 20:19 Pulse Rate 68 03/14/23 20:19 Respiratory Rate 16 03/14/23 20:19 Blood Pressure 134/88 03/14/23 20:19 Pulse Oximetry 100 03/14/23 20:19 Oxygen Delivery Room Air 03/14/23 20:19 Temperature 97.7 F 03/14/23 20:19 Pulse Rate 89 03/14/23 22:35 Respiratory Rate 17 03/14/23 22:35 Blood Pressure 155/96 H 03/14/23 22:35 Pulse Oximetry 100 03/14/23 22:35 Oxygen Delivery Room Air 03/14/23 20:19 MDM - Neuro Symptoms/Deficit MDM Narrative Medical decision making narrative: Patient is a 32-year-old female presenting with 6 hours of left-sided facial numbness. Vitals are stable. Exam remarkable for the above. She is neurologically intact. There are no o
--- NOTE | 2023-03-14 21:23 | PC.NURSE ---
pt. to CT
[2023-03-14 21:42] LABS: Magnesium 2.2 mg/dL (1.6-2.3)
[2023-03-14 21:45] VITALS: BP 153/85; PULSE 81; RESP 14; O2SAT 100
[2023-03-14] MEDS: SODIUM CHLORIDE 0.9% IV 1,000 ML 999 ML IV CONT (21:54)
[2023-03-14 22:35] VITALS: BP 155/96; PULSE 89; RESP 17; O2SAT 100
== END 2023-03-14 22:35 | disposition home or self-care (01) ==
PROVIDERS: Emergency Provider Emergency Medicine; PCP Internal Medicine
DX: R20.2 Paresthesia of skin (principal); I10 Essential (primary) hypertension; J45.909 Unspecified asthma, uncomplicated; E78.5 Hyperlipidemia, unspecified; E66.9 Obesity, unspecified; Z68.38 Body mass index [BMI] 38.0-38.9, adult; R94.31 Abnormal electrocardiogram [ECG] [EKG]
CPT/HCPCS: 36415; 70450; 80053; 83735; 85025; 85610; 85730; 93005; 96360; 99284; J7030